=== PATIENT | male | born 1995 | race Caucasian/White ===

== ENCOUNTER 2022-02-09 17:15 | Emergency (ER) | payer MEDICAID, SELFPAY ==
[2022-02-09 17:22] VITALS: BP 118/80; PULSE 119; RESP 20; TEMP 39.4; O2SAT 97; BMI 34.2
[2022-02-09] MEDS: Acetaminophen 325 MG TABLET 650 MG PO (17:29)
[2022-02-09 17:40] LABS: MANUAL DIFF FLAG NO
[2022-02-09 17:42] LABS: Basophils Percent Auto 0.4 % (0-2); Eosinophils Percent Auto 0.5 % (0-4); Hematocrit 41.6 % (42.0-52.0); Hemoglobin 14.5 g/dl (14.0-18.0); Imm Gran Abs Auto 0.02 X10*3/uL (0.00-0.03); Imm Gran Pct Auto 0.3 % (0.0-0.4); Lymphocytes Absolute Auto 0.8 X10*3/uL (1.2-4.9); Lymphocytes Percent Auto 10.7 % (20-40); Mean Corpuscular HGB Conc 34.9 g/dl (31.0-36.0); Mean Corpuscular Hemoglobin 30.3 pg (27.0-33.0); Mean Corpuscular Volume 86.8 fL (80.0-98.0); Mean Platelet Volume 9.3 fL (9.4-12.4); Monocytes Absolute Auto 0.6 X10*3/uL (0.1-1.2); Monocytes Percent Auto 8.3 % (2-11); Neutrophils Percent Auto 79.8 % (45-73); Platelet Count 253 X10*3/uL (160-400); Red Blood Count 4.79 X10*6/uL (4.60-5.80); Red Cell Distribution Width 13.2 % (11.0-16.0); White Blood Count 7.5 X10*3/uL (4.8-10.8)
[2022-02-09 17:55] LABS: Anion Gap 13 (12-20); Blood Urea Nitrogen 12 mg/dL (9-16); Calcium 9.6 mg/dL (8.4-10.2); Carbon Dioxide 25 mmol/L (22-29); Chloride 101 mmol/L (96-108); Creatinine Clr Calc Pharmacy 109.7; Estimated Glomerular Filt Rate > 60; Glucose Random 118 mg/dL (60-115); Potassium 4.2 mmol/L (3.3-5.1); Sodium 135 mmol/L (135-145)
[2022-02-09 18:00] LABS: Influenza A Positive (Negative); Influenza B2 Negative (Negative)
[2022-02-09 18:01] LABS: COVID-19 Test Negative (Negative); IDNOW Serial# 16C4AD1C
[2022-02-09 19:02] VITALS: BP 109/60; PULSE 120; RESP 20; O2SAT 100
[2022-02-09 19:37] VITALS: BP 118/71; PULSE 101; RESP 17; TEMP 39.1; O2SAT 97
--- NOTE | 2022-02-09 19:41 | ED_ITS ---
HPI - Fever General Chief Complaint: Fever Stated Complaint: fever body aches headache vomiting yesterday Time Seen by Provider: 02/09/22 18:04 Source: patient Mode of arrival: ambulatory Limitations: no limitations History of Present Illness HPI Narrative: 26 y/o male presents to the ER with 2 days of not feeling well. He has had fevers, chills, decreased appetite, nausea and vomiting. He denies abdominal pain but states he has lack of appetite and feels weak. He feels lightheaded if he stands too quickly. He has had fevers for 2 days and only started taking Tylenol today. He denies sick contacts. No respiratory symptoms. No urinary symptoms. MD elicited complaint: fever Onset (ago): day(s) (2) Exacerbating factors: nothing Relieving factors: acetaminophen Associated symptoms: chills, myalgias, headache, nausea and vomiting Treatments prior to arrival fever: none Related Data Previous Rx's Medication Instructions Recorded ondansetron 4 mg disintegrating 4 mg PO Q8H PRN #7 tab 02/09/22 tablet Allergies Allergy/AdvReac Type Severity Reaction Status Date / Time No Known Allergies Allergy Unverified 06/18/20 17:29 Review of Systems Review of Systems: Constitutional: + Fever, + Chills ENT/Mouth: No sore throat, No Rhinorrhea, No Swallowing Difficulty Cardiovascular: No Chest Pain, No SOB Respiratory: No Cough, No Sputum, No Wheezing, No dyspnea Gastrointestinal: + Nausea, + Vomiting, + Diarrhea, No abdominal Pain, No Hematochezia, No Melena Genitourinary: No Dysuria, No Urinary Frequency, No Hematuria Musculoskeletal: No joint pain, + Myalgias Skin: No Skin Lesions, No rash Neuro: + Weakness, No Numbness, + Dizziness, + Headache Psych: No Anxiety/Panic, No Depression Heme/Lymph: No Bruising, No Lymphadenopathy Endocrine: No Polyuria, No Polydipsia PMFSH Social History Social History Advance Directives: No Advance Directives Information Provided: Yes Physical Exam Vital Signs: Vital Signs: Last Vital Signs Temp 97.4 F 02/09/22 22:18 Pulse 88 02/09/22 22:18 Resp 17 02/09/22 22:18 BP 115/62 02/09/22 22:18 Pulse Ox 96 02/09/22 22:18 BMI result Body Mass Index 34.2 Appearance: Alert. Oriented X3. No acute distress. Eyes: Pupils equal, round and reactive to light. ENT: Pharynx normal. Neck: Normal inspection. Neck supple. CVS: Tachycardic, regular rhythm. Pulses normal. Respiratory: No respiratory distress. Breath sounds normal. Abdomen: Soft and nontender. +BS x4 Skin: Skin warm and dry. Normal skin color. Normal skin turgor. No rashes. Extremities: No lower extremity edema. Neuro: Oriented X 3. Grossly normal, nonfocal Course Course Course Narrative: 26 yo healthy male presenting to the ER with 2 days of fever, nausea, vomiting and decreased PO intake. Febrile 102.7 and tachycardic 120s on arrival, however nontoxic appearing. Abd is soft. Given tylenol in triage. Labs are unremarkable. He was found to be influenza positive. Will give IVF given reports of ligthheadedness and decreased PO. He is tolerating some adrien poonam now, will give PO motrin as well for ongoing fever. Will reassess. Reevaluation(s) Reevaluation #1: Now afebrile. VS now normal and he is feeling better after IVF. He is stable for d/c home with supportive care. MDM - Fever Lab Data Result diagrams: 02/09/22 17:36 02/09/22 17:36 Labs: Lab Results 02/09/22 02/09/22 02/09/22 Range/Units 17:36 17:36 17:36 WBC 7.5 (4.8-10.8) X10*3/uL RBC 4.79 (4.60-5.80) X10*6/uL Hgb 14.5 (14.0-18.0) g/dl Hct 41.6 L (42.0-52.0) % MCV 86.8 (80.0-98.0) fL MCH 30.3 (27.0-33.0) pg MCHC 34.9 (31.0-36.0) g/dl RDW 13.2 (11.0-16.0) % Plt Count 253 (160-400) X10*3/uL MPV 9.3 L (9.4-12.4) fL Immature Gran % (Auto) 0.3 (0.0-0.4) % Neut % (Auto) 79.8 H (45-73) % Lymph % (Auto) 10.7 L (20-40) % [place] % (Auto) 8.3 (2-11) % Eos % (Auto) 0.5 (0-4) % Baso % (Auto) 0.4 (0-2) % Lymph # (Auto) 0.8 L (1.2-4.9) X10*3/uL [place] # (Auto) 0.6 (0.1-1.2) X10*3/uL Eos # (Auto) 0.0 (0.0-0.4) X10*3/uL Baso # (Auto) 0.0 (0.0-0.2) X10*3/uL Abs Immat Gran (auto) 0.02 (0.00-0.03) X10*3/uL Absolute Neuts (auto) 6.0 (2.0-8.3) x10*3/uL Absolute Nucleated RBC 0.000 (0.0-0.012) X10*3/uL Nucleated RBC % (auto) 0.0 (0.0-0.2) /100WBC Sodium 135 (135-145) mmol/L Potassium 4.2 (3.3-5.1) mmol/L Chloride 101 (96-108) mmol/L Carbon Dioxide 25 (22-29) mmol/L Anion Gap 13 (12-20) BUN 12 (9-16) mg/dL Creatinine 1.36 (0.5-1.4) mg/dL Estim Creat Clear Calc 109.7 Estimated GFR > 60 Random Glucose 118 H (60-115) mg/dL Calcium 9.6 (8.4-10.2) mg/dL COVID-19 ([facility]IKA) (Negative) COVID-19 Clin Com Influenza Type A ([facility]) Positive A (Negative) Influenza Type B ([facility]) Negative (Negative) Influenza A & B Note See Note 02/09/22 Range/Units 17:36 WBC (4.8-10.8) X10*3/uL RBC (4.60-5.80) X10*6/uL Hgb (14.0-18.0) g/dl Hct (42.0-52.0) % MCV (80.0-98.0) fL MCH (27.0-33.0) pg MCHC (31.0-36.0) g/dl RDW (11.0-16.0) % Plt Count (160-400) X10*3/uL MPV (9.4-12.4) fL Immature Gran % (Auto) (0.0-0.4) % Neut % (Auto) (45-73) % Lymph % (Auto) (20-40) % [place] % (Auto) (2-11) % Eos % (Auto) (0-4) % Baso % (Auto) (0-2) % Lymph # (Auto) (1.2-4.9) X10*3/uL [place] # (Auto) (0.1-1.2) X10*3/uL Eos # (Auto) (0.0-0.4) X10*3/uL Baso # (Auto) (0.0-0.2) X10*3/uL Abs Immat Gran (auto) (0.00-0.03) X10*3/uL Absolute Neuts (auto) (2.0-8.3) x10*3/uL Absolute Nucleated RBC (0.0-0.012) X10*3/uL Nucleated RBC % (auto) (0.0-0.2) /100WBC Sodium (135-145) mmol/L Potassium (3.3-5.1) mmol/L Chloride (96-108) mmol/L Carbon Dioxide (22-29) mmol/L Anion Gap (12-20) BUN (9-16) mg/dL Creatinine (0.5-1.4) mg/dL Estim Creat Clear Calc Estimated GFR Random Glucose (60-115) mg/dL Calcium (8.4-10.2) mg/dL COVID-19 ([facility]IKA) Negative (Negative) COVID-19 Clin Com See Note Influenza Type A ([facility]) (Negative) Influenza Type B ([facility]) (Negative) Influenza A & B Note Discharge Plan Discharge Clinical Impression: Influenza Patient Disposition: Home, Self-Care Instructions: Influenza (DC) Additional Instructions: You were found to be Influenza A POSITIVE today. Rest. Drink plenty of fluids. Do not go out in public for the next 4-5 days, or until you are feeling better. Take over the counter cold/flu medications as needed for your symptoms. Take Tylenol and/or Motrin as needed for fevers and body aches. Take the prescribed medication as needed for nausea and vomiting. Follow up with your doctor this week. If you develop new or worsening symptoms call 911 or come back to the ER for further evaluation. Prescriptions: New ondansetron 4 mg tablet,disintegrating 4 mg PO Q8H PRN (Reason: nausea and vomiting) Qty: 7 0RF
[2022-02-09] MEDS: 0.9 % Sodium Chloride 1,000 ML 999 ML IVCONT ×2 (20:01→20:08)
[2022-02-09] MEDS: ondansetron HCL 4 MG/2 ML VIAL IVPUSH (20:01)
[2022-02-09] MEDS: Ibuprofen 600 MG TABLET PO (20:01)
[2022-02-09 22:13] VITALS: PULSE 17
[2022-02-09 22:18] VITALS: BP 115/62; PULSE 88; RESP 17; TEMP 36.3; O2SAT 96
== END 2022-02-09 22:29 | disposition home or self-care (01) ==
PROVIDERS: Emergency Provider Internal Medicine
DX: J10.1 Influenza due to other identified influenza virus with other respiratory manifestations (principal); R50.9 Fever, unspecified; M79.10 Myalgia, unspecified site; Z20.822 Contact with and (suspected) exposure to COVID-19; Z79.899 Other long term (current) drug therapy
CPT/HCPCS: 80048; 85025; 87502; 87635; 96361; 96374; 99284; J2405

== ENCOUNTER 2025-07-09 19:54 | Emergency (ER) | payer SELFPAY ==
--- NOTE | ~2025-07-09 | US_ITS ---
CLINICAL HISTORY: right testicular pain, r o torsion US Scrotum with Doppler Comparison: CT/REG/SR - CT ABDOMEN PELVIS W IV CON - 07/09/25 22:56 EDT CR - XR KUB - 07/09/25 20:43 EDT Findings: Right testicle measures 4.6 x 2.1 x 3.1 cm in size. Right testicle is of normal echotexture without mass lesion. There is a 3 mm cyst within the right epididymal head. There is a 4 x 2 x 4 mm right-sided scrotal edy with small right hydrocele. Left testicle measures 4.8 x 2.4 x 2.8 cm in size. Left testicle is of normal echotexture without mass lesion. There is a 5 x 1 x 5 mm cyst along the left tunica albuginea. Left epididymis is unremarkable. Duplex evaluation of the testicles was performed. This included real-time grayscale, color spectral Doppler analysis, and color Doppler flow imaging. Appropriate blood flow to both testicles. IMPRESSION: No acute findings. No findings of testicular torsion This document has been electronically signed by: Dago Kulkarni MD on 07/10/2025 00:12:45
--- NOTE | ~2025-07-09 | CT_ITS ---
CLINICAL HISTORY: rlq abd pain CT abdomen and pelvis with contrast Comparison: CR - XR KUB - 07/09/25 20:43 EDT Findings: CT abdomen: No infiltrates within the lung bases. No acute bony abnormality. No focal hepatic lesion. Main portal vein is patent. Spleen, pancreas, gallbladder, adrenal glands, and kidneys are unremarkable for acute findings. Small bowel loops are of normal caliber. No free fluid or free air. CT pelvis: Appendix is normal. No colonic wall thickening or pericolonic inflammatory stranding. Few scattered diverticuli within the colon without findings of diverticulitis. No free fluid or free air. No enlarged lymph nodes. Urinary bladder is minimally distended. Fat containing left inguinal hernia. IMPRESSION: No acute imaging explanation for the patient's symptoms. This document has been electronically signed by: Dago Kulkarni MD on 07/10/2025 00:06:33
--- NOTE | ~2025-07-09 | XR_ITS ---
CLINICAL HISTORY: rlq pain- nontender --- Additional Notes or Special Instructions: ERECT image s please Exam: Upright abdominal radiographs. Comparison: None provided. Findings: Moderate stool throughout the colon. Paucity of small bowel gas identified. No air-filled dilated small bowel is seen. No free air. Lung bases are clear. No focal bony lesions. Impression: Moderate colonic stool. No findings to suggest air-filled obstruction. This document has been electronically signed by: Dago Kulkarni MD on 07/09/2025 21:13:24
[2025-07-09 20:13] VITALS: BP 164/102; PULSE 65; RESP 16; TEMP 37; O2SAT 99; BMI 39.8
--- NOTE | 2025-07-09 20:17 | ED_ITS ---
HPI - Abdominal Pain General Chief Complaint: Abdominal Pain Stated Complaint: right side upper quadrant pain Time Seen by Provider: 07/09/25 22:27 Source: patient Mode of arrival: ambulatory Limitations: no limitations History of Present Illness ED Provider: DR. Zuniga HPI narrative: 29-year-old male otherwise healthy came in for evaluation of right testicular pain that is started 2-3 hours ago pain was in the right testicle radiating to right groin area, no urethral discharge, currently has no testicular pain, no trauma to the testicle. Patient is more concern of right testicle is riding higher than the left testicle, patient also was complaining of right lower abdominal. No intra-abdominal surgical history, passing flatus okay, last bowel movement was this morning, no dysuria, no frequency urination, no urethral discharge, sexually active with 1 person with no risk for STDs. Related Data Previous Rx's ?Medication ?Instructions ?Recorded ondansetron 4 mg disintegrating 4 mg PO Q8H PRN nausea and 02/09/22 tablet vomiting #7 tabs Allergies Allergy/AdvReac Type Severity Reaction Status Date / Time No Known Allergies Allergy Verified 07/09/25 20:16 Review of Systems Review of Systems All other systems are reviewed and are negative Constitutional: Reports as per HPI and Reports no additional constitutional complaints Eyes: Reports as per HPI and Reports no additional eye complaints Reports system reviewed and no additional complaints, except as documented Cardiovascular: Reports as per HPI and Reports no additional cardiovascular complaints Respiratory: Reports as per HPI and Reports no additional respiratory complaints Gastrointestinal: Reports as per HPI and Reports no additional gastrointestinal complaints Genitourinary: Reports no additional female genitourinary complaints Musculoskeletal: Reports no additional musculoskeletal complaints Skin/Breast: Reports system reviewed and no additional complaints, except as docu Psychiatric: Reports no additional psychiatric complaints Endocrine: Reports no additional endocrine complaints Hematologic/Lymphatic: Reports no additional hematologic/lymphatic complaints Allergic/Immunologic: Reports no additional allergic/immunologic complaints Reports system reviewed and no additional complaints, except as documented and Reports Abnormal speech present [facility] Social History Social History Advance Directives: No Advance Directives Information Provided: No Do you have a plan to hurt others: No Plan Physical Exam ED Vital Signs: Vital Signs - 24 hr 07/09/25 20:13 Temperature 98.6 F Pulse Rate 65 Respiratory Rate 16 Blood Pressure 164/102 H Pulse Oximetry 99 Oxygen Delivery Method Room Air BMI result Body Mass Index 39.8 Vital signs have been reviewed and appear to be correct. Blood pressure elevated. Heart rate normal. Respiratory rate normal. Temperature normal. Oxygen saturation normal. Appearance: Alert. Oriented X3. No acute distress. Head: Normal external exam. Normocephalic. Atraumatic. No [place] signs noted. No raccoon eyes noted Eyes: PERRLA. EOMI. Conjunctiva and sclera normal. Eyelids normal. ENT: TM's Normal. Pharynx normal. Uvula midline. Moist mucous membranes. No trismus noted. No drooling noted. No muffled voice noted. Neck: Normal inspection. Neck supple. FROM. No adenopathy. Thyroid Normal. No meningeal signs. No neck mass noted. CVS: Normal heart rate and rhythm. Heart sound normal. No murmurs noted. Pulses normal throughout. Respiratory: No respiratory distress. Painless inspiration. Breath sounds normal. No wheezes/rales/rhonchi noted. Chest nontender. No accessory muscle usage noted or decreased air movement noted. Abdomen: Soft and nontender. Bowel sounds normal in all 4 quadrants. No distention noted. No organomegaly noted. No visible injury noted. exam: No testicular swelling, no testicular tenderness, no redness, no hotness, normal lie, +cremasteric reflexes bilaterally. Back: No CVA tenderness. Full range of motion noted. Skin: Skin warm and dry. Normal skin color. Normal skin turgor. No rashes/lesions/lacerations noted. Extremities: No lower extremity edema. Extremities exhibit normal range of motion. Extremities nontender. Neuro: Oriented X 3. Cranial nerve exam: II-XII are grossly intact No motor deficit. No sensory deficit. Reflexes normal. Course Course Course Narrative: This is a RME preformed in triage by Grace Fitzgerald PA-C. Date: 07/09/2025, time 817 pm. Patient presents with testicular pain that started approximately 45 minutes ago. First he reported having 1 testes right higher than the other but on physical exam this is not evident. He denies any tenderness of his testes or swelling and no concerns for penile discharge rashes or STIs. Denies any painful urination flank pain. He points out that it is his right flank but anteriorly that it hurts him the most but only with deep palpation. He denies any trauma to the area no fevers and no chills no respiratory symptoms this has not happened before in the past. Denies any testicular trauma or heavy lifting. 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 No rashes. No lymphadenopathy. Abdomen is nontender but he points to his right lower quadrant where hurts the most no guarding negative for rashes, no evidence of hernia either, no CVA TTP Work UP: Abdominal labs and urine; testicular ultrasound not indicated, ERECT KUB xray Will defer full ROS and PE to treating provider. Patient will continued to be monitored in the interim. Reevaluation(s) Reevaluation #1: Right testicular pain/right lower quadrant abdominal pain. normal WBCs, CT shows normal appendix, no evidence of kidney stones, normal exam patent cremasteric reflex bilaterally, with good blood flow to both testicle without evidence of testicular torsion. Time: 01:00 Medical Decision Making Differential Diagnosis Differential Diagnoses: The differential diagnosis associated with the presentation includes (Acute appendicitis, acute ureteric stone, pyelonephritis, UTI, STD, acute appendicitis, hernia, colitis, diverticulitis, electrolyte derangement, severe anemia, Testicular torsion, orchitis, epididymitis.) Admission/Observation Consideration of admission/observation: Escalation of care including admission/observation considered Lab Data MDM Lab Attestation statement: I reviewed the patient's lab results. 07/09/25 20:32 07/09/25 20:32 Labs: Lab Results 07/09/25 Range/Units 20:32 WBC 7.6 (4.8-10.8) X10*3/uL RBC 4.88 (4.60-5.80) X10*6/uL Hgb 14.6 (14.0-18.0) g/dl Hct 41.5 L (42.0-52.0) % MCV 85.0 (80.0-98.0) fL MCH 29.9 (27.0-33.0) pg MCHC 35.2 (31.0-36.0) g/dl RDW 13.2 (11.0-16.0) % Plt Count 338 D (160-400) X10*3/uL MPV 8.7 L (9.4-12.4) fL Immature Gran % (Auto) 0.3 (0.0-0.4) % Neut % (Auto) 57.2 (45-73) % Lymph % (Auto) 32.1 (20-40) % [place] % (Auto) 7.4 (2-11) % Eos % (Auto) 2.5 (0-4) % Baso % (Auto) 0.5 (0-2) % Lymph # (Auto) 2.4 (1.2-4.9) X10*3/uL [place] # (Auto) 0.6 (0.1-1.2) X10*3/uL Eos # (Auto) 0.2 (0.0-0.4) X10*3/uL Baso # (Auto) 0.0 (0.0-0.2) X10*3/uL Abs Immat Gran (auto) 0.02 (0.00-0.03) X10*3/uL Absolute Neuts (auto) 4.4 (2.0-8.3) x10*3/uL Absolute Nucleated RBC 0.000 (0.0-0.012) X10*3/uL Nucleated RBC % (auto) 0.0 (0.0-0.2) /100WBC Sodium 137 (135-145) mmol/L Potassium 4.1 (3.3-5.1) mmol/L Chloride 107 (96-108) mmol/L Carbon Dioxide 25 (22-29) mmol/L Anion Gap 9 L (12-20) BUN 14 (9-16) mg/dL Creatinine 1.01 (0.5-1.4) mg/dL Estim Creat Clear Calc 150.9 Estimated GFR > 60 Random Glucose 96 (60-115) mg/dL Calcium 9.6 (8.4-10.2) mg/dL Total Bilirubin 0.3 (0.0-1.0) mg/dL AST 29 (5-37) U/L ALT 46 H (0-40) U/L Alkaline Phosphatase 71 (39-117) U/L Total Protein 8.1 H (6.5-8.0) g/dL Albumin 4.7 (3.5-5.0) g/dL Urine Color Yellow Urine Appearance Clear Urine pH 6.5 (5.0-9.0) Ur Specific [place] 1.020 (1.005-1.025) Urine Protein Negative (Neg-Trace) mg/dL Urine Glucose (UA) Negative (Negative) mg/dL Urine Ketones Negative (Negative) mg/dL Urine Blood Trace H (Negative) Urine Nitrite Negative (Negative) Ur Leukocyte Esterase Negative (Negative) Urine RBC 3-5 H (0-2) /HPF Urine WBC 0-5 (0-5) /HPF Ur Squamous Epith Cells 0-2 (0-2) /HPF Urine Bacteria None Seen (None Seen) Hyaline Casts 0-2 (0-2) /LPF Independent Interpretation I performed an independent interpretation of an: Ultrasound ( Scrotal ultrasound: No acute pathology, no evidence of torsion.) and CT Scan ( Abdomen pelvis: No acute intra-abdominal pathology.) Radiology Impression Discussion of test interpretation with radiology: I have reviewed the radiologist's reading. Discharge Plan Discharge Clinical Impression: Abdominal pain, Pain in right testicle Patient Disposition: Home, Self-Care Instructions: Abdominal Pain (ED), Testicle Pain (ED) Additional Instructions: seek immediate medical attention if any testicular pain or abdominal pain. Prescriptions: No Action ondansetron 4 mg tablet,disintegrating 4 mg PO Q8H PRN (Reason: nausea and vomiting) Qty: 7 0RF Print Language: [place]
[2025-07-09 20:38] LABS: MANUAL DIFF FLAG NO
[2025-07-09 20:40] LABS: Appearance Urine Clear; Glucose Urine UA Negative (Negative); PH 6.5 (5.0-9.0); Specific Gravity - Urine 1.020 (1.005-1.025); UMIC TRIGGER UACC YES
[2025-07-09 20:43] LABS: Hematocrit 41.5 % (42.0-52.0); Hemoglobin 14.6 g/dl (14.0-18.0); Imm Gran Abs Auto 0.02 X10*3/uL (0.00-0.03); Imm Gran Pct Auto 0.3 % (0.0-0.4); Lymphocytes Absolute Auto 2.4 X10*3/uL (1.2-4.9); Mean Corpuscular HGB Conc 35.2 g/dl (31.0-36.0); Mean Corpuscular Hemoglobin 29.9 pg (27.0-33.0); Mean Corpuscular Volume 85.0 fL (80.0-98.0); NRBC Abs Auto 0.000 X10*3/uL (0.0-0.012); NRBC Pct Auto 0.0 /100WBC (0.0-0.2); Platelet Count 338 X10*3/uL (160-400); Red Blood Count 4.88 X10*6/uL (4.60-5.80); White Blood Count 7.6 X10*3/uL (4.8-10.8)
[2025-07-09 20:52] LABS: Alanine Aminotransferase 46 U/L (0-40); Albumin Level 4.7 g/dL (3.5-5.0); Alkaline Phosphatase 71 U/L (39-117); Anion Gap 9 (12-20); Aspartate Amino Transferase 29 U/L (5-37); Blood Urea Nitrogen 14 mg/dL (9-16); Calcium 9.6 mg/dL (8.4-10.2); Carbon Dioxide 25 mmol/L (22-29); Chloride 107 mmol/L (96-108); Creatinine Clr Calc Pharmacy 150.9; Estimated Glomerular Filt Rate > 60; Potassium 4.1 mmol/L (3.3-5.1); Sodium 137 mmol/L (135-145); Total Protein 8.1 g/dL (6.5-8.0)
[2025-07-09] MEDS: iohexoL 350 MG/ML 100 ML INFUS..BTL 85 ML IV (23:04)
[2025-07-10 00:10] VITALS: BP 137/96; PULSE 68; RESP 18; TEMP 37; O2SAT 97
[2025-07-10 00:33] VITALS: BP 137/96; PULSE 68; RESP 18; TEMP 37; O2SAT 97
[2025-07-10 05:11] LABS: CT PCR Urine NOT DETECTED (Not Detect.); NG PCR Urine NOT DETECTED (Not Detect.)
== END 2025-07-10 00:45 | disposition home or self-care (01) ==
PROVIDERS: Physician Assistant Medical; Emergency Provider Emergency Medicine
DX: N50.811 Right testicular pain (principal)
CPT/HCPCS: 36415; 74018; 74177; 76870; 80053; 81001; 85025; 87491; 87591; 93975; 99283; 99285; Q9967

== ENCOUNTER → 2025-07-09 20:19 | Outpatient (BNV) | payer SELFPAY | PROVIDERS: Visit Provider Radiology Diagnostic Radiology | DX: R10.31 Right lower quadrant pain (principal); N50.811 Right testicular pain | CPT/HCPCS: 74018; 74177; 93975 ==